=== PATIENT | male | born 2000 | race Caucasian/White ===

== ENCOUNTER 2018-04-21 18:16 | Emergency (ER) | payer SELFPAY ==
[2018-04-21 18:35] VITALS: BP 136/84
--- NOTE | 2018-04-21 19:02 | ED Physician Documentation ---
PD HPI UPPER EXT INJURY - Stated complaint Stated Complaint: ELBOW INJURY - Chief complaint Chief Complaint: Ext Problem - History obtained from History obtained from: Patient - History of Present Illness Location: Left, Elbow Type of injury: Fall (he fell and landed directly down onto his elbow. Pain initially which worsened over few hours.) Timing - onset: Today Timing - details: Abrupt onset, Still present (with worsening after couple of hours, feeling more stiff with ROM.) Worsened by: Moving, Palpating Associated symptoms: Swelling. No: Weakness, Numbness, Tingling Contributing factors: No: Anticoagulated Similar symptoms before: Has not had sx before Recently seen: Not recently seen Review of Systems Cardiac: denies: Chest pain / pressure Respiratory: denies: Dyspnea GI: denies: Abdominal Pain, Vomiting PD PAST MEDICAL HISTORY - Past Medical History Musculoskeletal: None PD ED PE NORMAL - Vitals Vital signs reviewed: Yes - General General: Alert and oriented X 3, No acute distress, Well developed/nourished - HEENT HEENT: Atraumatic - Neck Neck: Supple, no meningeal sign, No bony TTP, No adenopathy - Cardiac Cardiac: RRR, No murmur - Respiratory Respiratory: Clear bilaterally - Abdomen Abdomen: Soft, Non tender - Back Back: No spinal TTP - Derm Derm: Normal color, Warm and dry - Extremities Extremities: Other (left elbow with mild effusion, tenderness at AC area and posteriorly too. No punctures nor lacs. ) - Neuro Neuro: Alert and oriented X 3, No motor deficit, No sensory deficit, Normal speech Results - Vitals Vitals: Oxygen O2 Source Room air - Rads (name of study) elbow Radiology: Prelim report reviewed (left radial head fracture, nondisplaced) PD MEDICAL DECISION MAKING - ED course Complexity details: reviewed results, considered differential, d/w patient - Sepsis Event Vital Signs: Oxygen O2 Source Room air Departure - Departure Disposition: 01 Home, Self Care Clinical Impression: Effusion of elbow joint, left Accidental fall Qualifiers: Encounter type: initial encounter Qualified Code(s): W19.XXXA - Unspecified fall, initial encounter Left radial head fracture Qualifiers: Encounter type: initial encounter Fracture type: closed Fracture alignment: nondisplaced Qualified Code(s): S52.125A - Nondisplaced fracture of head of left radius, initial encounter for closed fracture Condition: Stable Record reviewed to determine appropriate education?: Yes Instructions: ED Fx Radial Head Follow-Up: EVERT ARIAS MD [Primary Care Provider] - Comments: Use a sling to reduce range of motion. No lifting, push pull, repetitive use of the arm or elbow until further advised. Typically the orthopedist will advocate slight range of motion of the elbow for this type of fracture. Sling only without a splint. Follow-up for recheck in about 1-1 1/2 weeks for likely re-x-ray to ensure its still holding position. This will take about 4-6 weeks to fully heal up and will be no heavy use of the arm during that time. There will be some progressive range of motion and use of the elbow however. Tylenol or ibuprofen or naproxen if needed for pains. The swelling in the elbow will decrease over several days to week and that will improve the discomfort quite a bit. For the abrasion, clean it with soap and water twice daily and apply ointment. Recheck if signs of infection. Forms: Activity restrictions Discharge Date/Time: 04/21/18 20:10
--- NOTE | 2018-04-21 20:07 | XRAY Report ---
Procedure Date: 04/21/2018 Accession Number: [id number] / [id number] Procedure: XR - Elbow 3 View LT CPT Code: FULL RESULT: EXAM: LEFT ELBOW RADIOGRAPHY EXAM DATE: 04/21/2018 07:40 PM. CLINICAL HISTORY: GLF swelling pain in elbow. COMPARISON: None. TECHNIQUE: 3 views. FINDINGS: Bones: There is an intra-articular fracture involving the radial head without significant malalignment. No additional fracture. Joints: Large effusion. No subluxation. Soft Tissues: Mild soft tissue swelling. IMPRESSION: Radial head fracture without malalignment. Large joint effusion. [facility]
== END 2018-04-21 20:10 | disposition home or self-care (01) ==
LOC: ED 18:16
DX: S52.125A Nondisplaced fracture of head of left radius, initial encounter for closed fracture (principal); W19.XXXA Unspecified fall, initial encounter
CPT/HCPCS: 99283